=== PATIENT | male | born 1975 | race Caucasian/White ===

== ENCOUNTER 2021-07-14 22:20 | Emergency (ER) | payer MEDICARE, OTHER ==
[~2021-07-14] VITALS: Ht 180.3 cm; Wt 63.5 kg
--- NOTE | 2021-07-14 22:21 | NUR ---
SEEN BY PHYLLIS BALDERRAMA AT [facility] .EXAMINED PATIENT .
--- NOTE | 2021-07-14 22:36 | NUR ---
BENJAMÍN AT [facility] .
[2021-07-14] MEDS ORDERED: QUET25TA PO (22:40)
[2021-07-14] MEDS ORDERED: DIPH25CA83 PO (22:40)
--- NOTE | 2021-07-14 22:40 | NUR ---
Pt states he takes benadryl and seroquel, unknown doses.
--- NOTE | 2021-07-14 22:40 | NUR ---
PORTABLE CHEST XRAY DONE BY TECH AT [facility].
[2021-07-14 22:44] LABS: HEMATOCRIT 39.3 % (36.7-47.1); MEAN CORPUSCULAR HEMOGLOBIN 32.2 uug (23.8-33.4); PLATELET COUNT (AUTO) 280 K/uL (152-348)
[2021-07-14] MEDS ORDERED: diphenhydrAMINE 50 MG/1 ML VIAL ONE (22:53)
[2021-07-14] MEDS ORDERED: LORAZEPAM 2 MG/1 ML VIAL ONE (22:54)
[2021-07-14] MEDS ORDERED: HALOPERIDOL LACTATE 5 MG/1 ML VIAL ONE (22:54)
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
[2021-07-14 22:57] LABS: ALANINE AMINOTRANSFERASE 228 U/L (16-63); ALKALINE PHOSPHATASE 64 U/L (50-136); ASPARTATE AMINOTRANSFERASE 91 U/L (15-37); BILIRUBIN,DIRECT 0.2 mg/dL (0.0-0.2); BILIRUBIN,TOTAL 0.7 mg/dL (0.2-1.0); CARBON DIOXIDE 27 mmol/L (21-32); CHLORIDE 102 mmol/L (98-107); CREATININE 0.9 mg/dL (0.6-1.3); GLUCOSE 203 mg/dL (74-106); POTASSIUM 3.2 mmol/L (3.5-5.1); TOTAL PROTEIN, SERUM 6.8 g/dL (6.4-8.2); UREA NITROGEN, BLOOD 17 mg/dL (7-18)
--- NOTE | 2021-07-14 22:59 | NUR ---
VIA BENADRYL HALDOL,ATIVAN SEE EMAR VIA THE LEFT DELTOID .
[2021-07-14] MEDS ORDERED: HALOPERIDOL LACTATE 5 MG/1 ML VIAL IM ONE (23:00)
[2021-07-14] MEDS ORDERED: LORAZEPAM 2 MG/1 ML VIAL IM ONE (23:00)
[2021-07-14] MEDS ORDERED: diphenhydrAMINE 50 MG/1 ML VIAL IM ONE (23:00)
[2021-07-14 23:01] LABS: ACETAMINOPHEN < 2.0 ug/mL (10-30)
[2021-07-14 23:02] LABS: ETHANOL < 3 MG/DL (0-0)
--- NOTE | 2021-07-15 00:10 | NUR ---
STRAIGHT CATH DONE ASEPTICALLY URINE SEND TO LAB.
--- NOTE | 2021-07-15 00:26 | NUR ---
:LALA AT [facility] CHECK PATIENT ,NO RESPIRATORY DISTRESS NOTED,W/S WNL.
[2021-07-15] MEDS ORDERED: POTASSIUM BICARBONATE/CIT AC 25 MEQ TABLET.EFF PO ONE (00:30)
[2021-07-15] MEDS ORDERED: THIAMINE HCL 100 MG TABLET PO ONE (00:30)
[2021-07-15 00:49] LABS: *BILIRUBIN,URIN NEGATIVE (NEGATIVE); *CLARITY,URINE CLEAR (CLEAR); *KETONES,URINE TRACE (NEGATIVE); LEUKOCYTE ESTERASE ,URINE NEGATIVE (NEGATIVE); NITRITE, URINE NEGATIVE (NEGATIVE); UGLUCOSE 2+ (NEGATIVE)
[2021-07-15 01:03] LABS: *AMPHETAMINE, URINE POSITIVE (NEGATIVE); *BLOOD, URINE TRACE (NEGATIVE); *CANNABINOID, URINE NEGATIVE (NEGATIVE); *COCCAINE, URINE NEGATIVE (NEGATIVE); *COLOR,URINE AMBER (YELLOW); *OPIATE, URINE NEGATIVE (NEGATIVE); *PHENCYCLIDINE SCREEN,URINE NEGATIVE (NEGATIVE)
[2021-07-15 01:16] LABS: BACTERIA,URINE NONE SEEN /HPF (NONE SEEN); SQUAMOUS EPITHELIAL CELL,UR FEW /HPF (NONE SEEN)
[2021-07-15] MEDS ORDERED: POTASSIUM BICARBONATE/CIT AC 25 MEQ TABLET.EFF ONE (01:53)
[2021-07-15] MEDS ORDERED: THIAMINE HCL 100 MG TABLET ONE (01:54)
[2021-07-15] MEDS ORDERED: QUETIAPINE FUMARATE 25 MG TABLET PO ONE (11:00)
[2021-07-15] MEDS ORDERED: QUETIAPINE FUMARATE 25 MG TABLET ONE (11:03)
[2021-07-15] MEDS ORDERED: QUET25TA PO (11:10)
[2021-07-15 12:01] VITALS: BP 101/69
== END 2021-07-15 12:02 | disposition home or self-care (01) ==
LOC: ER 22:23
DX: F29 Unspecified psychosis not due to a substance or known physiological condition (principal); F15.10 Other stimulant abuse, uncomplicated; F20.9 Schizophrenia, unspecified; F17.210 Nicotine dependence, cigarettes, uncomplicated; Z82.49 Family history of ischemic heart disease and other diseases of the circulatory system; Z20.822 Contact with and (suspected) exposure to COVID-19; Z59.00 Homelessness unspecified
CPT/HCPCS: 36415; 71045; 80048; 80076; 80299; 80307; 80320; 81001; 82607; 83735; 85025; 87426; 93005; 96372 ×2; 99285; 99406; J1200; J1630; J2060; A4663; C1758; G0480